=== PATIENT | female | born 1940 | race Caucasian/White ===

== ENCOUNTER 2020-10-11 12:22 | Inpatient (IN) | payer OTHER ==
[~2020-10-11] VITALS: Ht 160 cm; Wt 68.5 kg
[2020-10-11] MEDS ORDERED: ZOFRAN4 MG (13:07)
[2020-10-11] MEDS ORDERED: TIMOPTIC 0.5 % O5 ML EACH EYE (13:07)
[2020-10-11] MEDS ORDERED: SYNTHROID88 MCG PO (13:07)
[2020-10-11] MEDS ORDERED: VOLTAREN100 GM TOPICAL (13:07)
[2020-10-11 13:18] VITALS: BP 145/88; Ht 160 cm; Wt 68.5 kg
[2020-10-11 13:42] LABS: BASOPHILS 0.5 % (0-2); EOSINOPHILS 0 % (0-7); HEMATOCRIT 44.8 % (36.0-48.0); LYMPHOCYTES 20.5 % (15-50); MCH 29.5 pg (26.0-34.0); MCHC 33.5 g/dL (31.0-37.0); MCV 88.1 fL (80.0-100.0); MEAN PLATELET VOLUME 8.3 fL (7.4-10.4); MONOCYTES 18.4 % (2-11); NEUTROPHILS 60.6 % (40-80); PLATELET COUNT 149 10x3/uL (130-400); RBC 5.09 10x6/uL (4.00-5.40); RDW 13.4 % (11.5-14.5)
[2020-10-11 13:52] LABS: CALC OSMOLALITY 274 mosm/kg (275-300); CALCIUM 8.9 mg/dL (8.5-10.1); CARBON DIOXIDE 30.6 mmol/L (21.0-32.0); CHLORIDE - SERUM 99 mmol/L (98-107); CREATININE - SERUM 0.8 mg/dL (0.6-1.3); GLUCOSE 89 mg/dL (74-106); POTASSIUM - SERUM 3.3 mmol/L (3.5-5.1); SODIUM 138 mmol/L (136-145); UREA NITROGEN 13 mg/dL (7-18); eGFR NON AFRICAN AMERICAN 73 mL/min (90-120)
[2020-10-11 14:03] LABS: INR 1.02 (0.85-1.17); PROTIME 12.4 SECONDS (11.6-15.0)
[2020-10-11 14:05] LABS: D-DIMER-QUANTITATIVE 1.21 ug/mLFEU (0.20-0.54)
[2020-10-11 14:12] LABS: ALBUMIN 3.3 g/dL (3.4-5.0); ALKALINE PHOSPHATASE 60 U/L (30-120); ALT (SGPT) 23 U/L (10-68); BILIRUBIN - TOTAL 0.43 mg/dL (0.2-1.3); C-REACTIVE PROTEIN 5.2 mg/dL (0.0-0.9); CREATINE KINASE 78 UL (21-215); FERRITIN 675 ng/mL (3-244); LDH 261 U/L (81-234); PROTEIN - SERUM 6.7 g/dL (6.4-8.2); TROPONIN-I < 0.017 ng/mL (0.000-0.060)
--- NOTE | 2020-10-11 17:05 | NUR ---
PT ARRIVED TO UNIT ACCOMPANIED BY HOSPITAL STAFF. O2 SAT 89% ON ROOM AIR. O2 2LPM VIA NC ADMINISTERD. SETTLED INTO ROOM. DENIES NEEDS AT THIS TIME. CLIR. BED IN LOWEST POSITION. SIDE RAILS X2
[2020-10-11 19:34] VITALS: BP 141/76
--- NOTE | 2020-10-11 21:28 | NUR ---
REPORT RECEIVED. PT A&O, UP IN BED WATCHING TV. NO S/S OF DISTRESS OBSERVED. RR EVEN & UNLABORED ON 2L. IV TO L AC WITH NS @ 125 CC/HR. ASSISTED PT TO RESTROOM. BED LOCKED AND LOWERED, CL IN REACH. ASSESSMENT COMPLETE. WILL CONT POC.
[2020-10-12] VITALS (7 sets, daily range): BP systolic 139–153; BP diastolic 75–97
[2020-10-12 00:47] LABS: BILIRUBIN NEGATIVE (NEGATIVE); KETONE NEGATIVE (NEGATIVE); NITRITE NEGATIVE (NEGATIVE); UROBILINOGEN NORMAL mg/dL (< 2)
[2020-10-12 06:34] LABS: ALBUMIN 3.2 g/dL (3.4-5.0); ALKALINE PHOSPHATASE 62 U/L (30-120); ALT (SGPT) 23 U/L (10-68); CALC OSMOLALITY 280 mosm/kg (275-300); CALCIUM 8.3 mg/dL (8.5-10.1); CARBON DIOXIDE 25.4 mmol/L (21.0-32.0); CHLORIDE - SERUM 104 mmol/L (98-107); CREATININE - SERUM 0.7 mg/dL (0.6-1.3); GLUCOSE 120 mg/dL (74-106); HEMATOCRIT 44.1 % (36.0-48.0); HEMOGLOBIN 14.9 g/dL (12-16); MCH 29.8 pg (26.0-34.0); MCHC 33.7 g/dL (31.0-37.0); MCV 88.4 fL (80.0-100.0); PLATELET COUNT 141 10x3/uL (130-400); POTASSIUM - SERUM 4.1 mmol/L (3.5-5.1); PROTEIN - SERUM 6.4 g/dL (6.4-8.2); RBC 4.99 10x6/uL (4.00-5.40); RDW 13.3 % (11.5-14.5); SODIUM 141 mmol/L (136-145); UREA NITROGEN 10 mg/dL (7-18); eGFR NON AFRICAN AMERICAN 85 mL/min (90-120)
[2020-10-12 06:35] LABS: WBC 2.9 10x3/uL (4.8-10.8)
[2020-10-12 07:43] LABS: LYMPHOCYTES 12 % (15-50); MONOCYTES 2 % (2-11); NEUTROPHILS 84 % (40-80); PLATELET ESTIMATE NORMAL
--- NOTE | 2020-10-12 20:00 | NUR ---
REPORT RECEIVED. PT A&O, UP IN BED WATCHING TV. NO S/S OF DISTRESS OBSERVED. RR EVEN & UNLABORED ON 2L. BED LOCKED AND LOWERED, CL IN REACH. ASSESSMENT COMPLETE. WILL CONT POC.
[2020-10-13 04:29] VITALS: BP 151/83
[2020-10-13 06:40] LABS: BASOPHILS 0.4 % (0-2); EOSINOPHILS 0.3 % (0-7); HEMATOCRIT 40.8 % (36.0-48.0); HEMOGLOBIN 13.8 g/dL (12-16); LYMPHOCYTES 17.6 % (15-50); MCH 29.5 pg (26.0-34.0); MCHC 33.8 g/dL (31.0-37.0); MCV 87.4 fL (80.0-100.0); MEAN PLATELET VOLUME 8.5 fL (7.4-10.4); MONOCYTES 21.5 % (2-11); NEUTROPHILS 60.2 % (40-80); RBC 4.67 10x6/uL (4.00-5.40); RDW 13.1 % (11.5-14.5)
[2020-10-13 06:43] LABS: PLATELET COUNT 172 10x3/uL (130-400); WBC 4.7 10x3/uL (4.8-10.8)
[2020-10-13 06:55] LABS: ALKALINE PHOSPHATASE 59 U/L (30-120); ALT (SGPT) 23 U/L (10-68); BILIRUBIN - TOTAL 0.48 mg/dL (0.2-1.3); CALCIUM 8.2 mg/dL (8.5-10.1); CARBON DIOXIDE 27.2 mmol/L (21.0-32.0); CHLORIDE - SERUM 106 mmol/L (98-107); GLUCOSE 99 mg/dL (74-106); POTASSIUM - SERUM 3.5 mmol/L (3.5-5.1); PROTEIN - SERUM 5.8 g/dL (6.4-8.2); SODIUM 144 mmol/L (136-145)
[2020-10-13 06:56] LABS: CALC OSMOLALITY 284 mosm/kg (275-300); CREATININE - SERUM 0.4 mg/dL (0.6-1.3); UREA NITROGEN 7 mg/dL (7-18); eGFR NON AFRICAN AMERICAN > 90 mL/min (90-120)
--- NOTE | 2020-10-13 07:14 | NUR ---
PT LYING IN BED WITH EYES CLOSED. RAISES TO VERBAL STIMULI. RESP EVEN AND UNLABORED. [address] AAO X4[address] DENIES NEEDS AT THIS TIME. CLIR. BED IN LOWEST POSITON. SIDE RAIS X2
[2020-10-13 07:54] VITALS: BP 140/86
[2020-10-13 10:58] VITALS: BP 134/74
[2020-10-13] MEDS ORDERED: STROMECTOL 3 MG3 MG PO (12:41)
[2020-10-13] MEDS ORDERED: DECADRON4 MG PO (12:41)
[2020-10-13] MEDS ORDERED: SINGULAIR10 MG PO (12:41)
[2020-10-13] MEDS ORDERED: VITAMIN C PO (12:41)
[2020-10-13] MEDS ORDERED: VENTOLIN HFA [SP8 GM INH (12:41)
[2020-10-13] MEDS ORDERED: TESSALON PERLE100 MG PO (12:41)
[2020-10-13] MEDS ORDERED: VITAMIN D325 MC1 PO (12:41)
[2020-10-13] MEDS ORDERED: MELATONIN 3 MG1 TAB PO (12:41)
[2020-10-13] MEDS ORDERED: DULERA 200 MCG8.8 GM INH (12:41)
[2020-10-13] MEDS ORDERED: MUCINEX600 MG PO (12:41)
--- NOTE | 2020-10-13 12:42 | NUR ---
PT AND FAMILY VERY UPSET ABOUT CONDITION OF ROOM. ROOM CLEANED BY HOUSEKEEPING. LINENS AND GOWN CHANGED. PT STATES HER ROOM HAS BEEN DIRTY FOR 10 DAYS. PT ARRIVED TO THIS UNIT FRIDAY TO CLEAN ROOM.
--- NOTE | 2020-10-13 13:09 | MORECARE ---
CASE MANAGEMENT DISCHARGE SUMMARY PATIENT: PANFILO BRITT UNIT: [id number] ADM DATE: 10/11/20 AGE: 80 : 39 SEX: F ROOM/BED: D.210 AUTHOR: JENARO,DOC PHYSICIAN: REFERRING PHYSICIAN: LIZZY LANIER MD DATE OF SERVICE: 10/13/20 Case Management Discharge Planning Summary COMMENTS ENTERED DATE: 10/13/20 12:56 CT COMMENT TYPE: Discharge Planning REVIEWER: Pilar Cordero CM HAS MET WITH PATIENT AND FAMILY. ROBERT IS BRINGING OXYGEN TO HER ROOM AND THEN DELIVER TO HOUSE. PATIENT TO DC TO HOME AFTER OXYGEN TANK IS DELIVERED TO HER ROOM. DCP REVIEW SUMMARY ANTICIPATED D/C DATE: EXPECTED LOS : CASE STATUS: DCP Initiated INITIAL REVIEW: 10/11/2020 INITIAL REVIEWER: Pilar Cordero FINAL DISCHARGE DISPOSITION: : FINAL REVIEWER: FINAL REVIEW DATE: DCP Focus Questions & Answers QUESTION: ANSWER : PATIENT: PANFILO BRITT ENCOUNTER: [id number] MEDICAL RECORD#: [id number] ADMISSION DATE: 10/11/2020 DISCHARGE DATE: ATTENDING MD: LIZZY MARIE : AGE: 80 MARITAL STATUS: U DC PLAN ID: [id number] FACILITY: PRINTED ON: 10/13/20 13:09 CT All edits/amendments must be made on the electronic document DICTATION DATE: 10/13/20 130 DUMPER CENTRAL CONCRETE MIXING PLANT: KAIA 10/13/20 1309 RPT#: [id number] DC DATE: STATUS: ADM IN [address] [place] [address] END OF REPORT
--- NOTE | 2020-10-13 13:23 | NUR ---
RX'S CALLED TO [facility], SPOKE WITH HARRISON, PHARMACIST.
--- NOTE | 2020-10-13 14:02 | NUR ---
PT DC HOME WITH FAMILY MEMBER. IV DC. IV CATH TIP INTACT. DRESSING APPLIED. DC INSTRUCTIONS GIVEN VERBALLY AND WRITTEN. PT VERBALIZED UNDERSTANDING.
--- NOTE | 2020-10-13 14:28 | MORECARE ---
CASE MANAGEMENT DISCHARGE SUMMARY PATIENT: PANFILO BRITT UNIT: [id number] ADM DATE: 10/11/20 AGE: 80 : 39 SEX: F ROOM/BED: D.210 AUTHOR: JENARO,DOC PHYSICIAN: REFERRING PHYSICIAN: LIZZY LANIER MD DATE OF SERVICE: 10/13/20 Case Management Discharge Planning Summary COMMENTS ENTERED DATE: 10/13/20 12:56 CT COMMENT TYPE: Discharge Planning REVIEWER: Pilar Cordero CM HAS MET WITH PATIENT AND FAMILY. ROBERT IS BRINGING OXYGEN TO HER ROOM AND THEN DELIVER TO HOUSE. PATIENT TO DC TO HOME AFTER OXYGEN TANK IS DELIVERED TO HER ROOM. DCP REVIEW SUMMARY ANTICIPATED D/C DATE: 10/13/2020 EXPECTED LOS : 2 CASE STATUS: DCP Initiated INITIAL REVIEW: 10/11/2020 INITIAL REVIEWER: Pilar Cordero FINAL DISCHARGE DISPOSITION: : FINAL REVIEWER: FINAL REVIEW DATE: DCP Focus Questions & Answers QUESTION: ANSWER : PATIENT: PANFILO BRITT ENCOUNTER: [id number] MEDICAL RECORD#: [id number] ADMISSION DATE: 10/11/2020 DISCHARGE DATE: 10/13/2020 ATTENDING MD: LIZZY MARIE : AGE: 80 MARITAL STATUS: U DC PLAN ID: [id number] FACILITY: [facility] PRINTED ON: 10/13/20 14:27 CT All edits/amendments must be made on the electronic document DICTATION DATE: 10/13/201426 LUMPIA WRAPPER MAKER: DM 10/13/201426 RPT#: [id number] DC DATE:10/13/20 STATUS: DIS IN [facility] [address] [place] [address] END OF REPORT
--- NOTE | 2020-10-13 14:42 | MORECARE ---
CASE MANAGEMENT DISCHARGE SUMMARY PATIENT: PANFILO MALDONADO UNIT: [id number] ADM DATE: 10/11/20 AGE: 80 : 39 SEX: F ROOM/BED: D.210 AUTHOR: JENARO,DOC PHYSICIAN: REFERRING PHYSICIAN: LIZZY LANIER MD DATE OF SERVICE: 10/13/20 Case Management Discharge Planning Summary COMMENTS ENTERED DATE: 10/13/20 12:56 CT COMMENT TYPE: Discharge Planning REVIEWER: Pilar Cordero CM HAS MET WITH PATIENT AND FAMILY. ROBERT IS BRINGING OXYGEN TO HER ROOM AND THEN DELIVER TO HOUSE. PATIENT TO DC TO HOME AFTER OXYGEN TANK IS DELIVERED TO HER ROOM. DCP REVIEW SUMMARY ANTICIPATED D/C DATE: 10/13/2020 EXPECTED LOS : 2 CASE STATUS: DCP Initiated INITIAL REVIEW: 10/11/2020 INITIAL REVIEWER: Pilar Cordero FINAL DISCHARGE DISPOSITION: : FINAL REVIEWER: FINAL REVIEW DATE: DCP Focus Questions & Answers DCP Screen QUESTION: ANSWER High Risk Factors: : None Walking limitation: Patient stated self rated walking limitation present? : No Age: : 79 + Prior living environment: : Lives with others Disability ranking: : Grade 1: No significant disability DCP Evaluation QUESTION: ANSWER Patient and/or caregiver agree upon recommended discharge plan? : Yes Patient's current cognitive status: : *Oriented to person, place, situation, time and present Patient's ability to cope with chronic illness : d. No chronic illness Patient gives permission to discuss discharge plans with: (name, relationship and number) : Abran Maldonado (Spouse) [phone] Family / Caregiver's ability to cope with chronic illness: : a. Adequate (ability to meet patient's medical needs, ensures patient attends medical appts.) Does the patient have the ability to pay for or attain post discharge needs / services? : Yes Functional screen assessment: : Basic needs can adequately be met by self Family / Caregiver's ability to cope with chronic illness: : a. Adequate (ability to meet patient's medical needs, ensures patient attends medical appts.) Physical Status: : Independent with ADL's Equipment needed for post hospitalization: : Home Oxygen with Nasal Cannula Is there a likelihood that the patient will require additional services to return to the preadmission environment? : Yes Living Arrangements: : Home with Spouse/Significant Other Results of this evaluation have been discussed with: : Patient Patient with capacity for self-care or can be cared for in same environment as prior to hospitalization? : Yes Baseline cognitive status: : *Oriented to person, place, situation, time and present Physical environment modification needed / anticipated for discharge: : N/A Medication Management: : Patient states can afford medications Medication Management: : Patient states they do have transportation to meat pickler medications Medication Management: : Patient states can read and understand medication labels Planned post hospital services available for patient? : Yes Pharmacy name(s): : [facility] [place] [employer] [place] Planned post hospital services covered by insurance plan? : Yes Does Patient have transportation to get home and to follow-up medical appointments when discharged from the hospital? : Yes Would patient like to participate in any Care Coordination programs (if applicable): : Not applicable Does the patient have electricity at home? : Yes Does the patient have running water in their house? : Yes Equipment in use: : None Mental health screen: : No mental health history Psychosocial status: : Independent adult (65+) Abuse/Neglect: : None Resources / Services in place: : None DCP Re-evaluation QUESTION: ANSWER Would patient like to participate in any Care Coordination programs (if applicable): : Not applicable PATIENT: PANFILO MALDONADO ENCOUNTER: [id number] MEDICAL RECORD#: [id number] ADMISSION DATE: 10/11/2020 DISCHARGE DATE: 10/13/2020 ATTENDING MD: LIZZY MARIE : AGE: 80 MARITAL STATUS: U DC PLAN ID: [id number] FACILITY: [facility] PRINTED ON: 10/13/20 14:41 CT All edits/amendments must be made on the electronic document DICTATION DATE: 10/13/201440 SUSTAINABILITY PURCHASING AGENT: KAIA 10/13/201440 RPT#: [id number] DC DATE:10/13/20 STATUS: DIS IN [facility] [address] [place] [address] END OF REPORT
--- NOTE | 2020-10-13 14:54 | MORECARE ---
CASE MANAGEMENT DISCHARGE SUMMARY PATIENT: PANFILO MALDONADO UNIT: [id number] ADM DATE: 10/11/20 AGE: 80 : 39 SEX: F ROOM/BED: D.2107 AUTHOR: JENARO,DOC PHYSICIAN: REFERRING PHYSICIAN: LIZZY LANIER MD DATE OF SERVICE: 10/13/20 Case Management Discharge Planning Summary COMMENTS ENTERED DATE: 10/13/20 14:33 CT COMMENT TYPE: Discharge Planning REVIEWER: Juany Lin CM met with patient to complete discharge planning assessment and offer availability of needed services. Patient states that she lives independently at home with her spouse Abran Maldonado ([phone]) prior to admission. Spouse and grand daughter present in room at time of DCP and verified that home environment is safe and has electricity and running water. Patient denies need for transportation and states that they have funds for services and medications if needed. Patient uses [facility] for pharmacy needs. CM offered and discussed home health, rehab services, and need for any medical equipment. Patient has been discharged with Oxygen need. Pt states that she has no preference for DME. Pt chose [facility] for DME, information faxed for home delivery. Transportation home will be provided by spouse and grand daughter. Patient verbalized understanding of signed forms SCOTT form signed for additional service, placed on chart. ENTERED DATE: 10/13/20 12:56 CT COMMENT TYPE: Discharge Planning REVIEWER: Pilar Cordero CM HAS MET WITH PATIENT AND FAMILY. ROBERT IS BRINGING OXYGEN TO HER ROOM AND THEN DELIVER TO HOUSE. PATIENT TO DC TO HOME AFTER OXYGEN TANK IS DELIVERED TO HER ROOM. DCP REVIEW SUMMARY ANTICIPATED D/C DATE: 10/13/2020 EXPECTED LOS : 2 CASE STATUS: DCP Initiated INITIAL REVIEW: 10/11/2020 INITIAL REVIEWER: Pilar Cordero FINAL DISCHARGE DISPOSITION: : FINAL REVIEWER: FINAL REVIEW DATE: DCP Focus Questions & Answers DCP Screen QUESTION: ANSWER High Risk Factors: : None Walking limitation: Patient stated self rated walking limitation present? : No Age: : 79 + Prior living environment: : Lives with others Disability ranking: : Grade 1: No significant disability DCP Evaluation QUESTION: ANSWER Patient and/or caregiver agree upon recommended discharge plan? : Yes Patient's current cognitive status: : *Oriented to person, place, situation, time and present Patient's ability to cope with chronic illness : d. No chronic illness Patient gives permission to discuss discharge plans with: (name, relationship and number) : Abran Maldonado (Spouse) [phone] Family / Caregiver's ability to cope with chronic illness: : a. Adequate (ability to meet patient's medical needs, ensures patient attends medical appts.) Does the patient have the ability to pay for or attain post discharge needs / services? : Yes Functional screen assessment: : Basic needs can adequately be met by self Family / Caregiver's ability to cope with chronic illness: : a. Adequate (ability to meet patient's medical needs, ensures patient attends medical appts.) Physical Status: : Independent with ADL's Equipment needed for post hospitalization: : Home Oxygen with Nasal Cannula Is there a likelihood that the patient will require additional services to return to the preadmission environment? : Yes Living Arrangements: : Home with Spouse/Significant Other Results of this evaluation have been discussed with: : Patient Patient with capacity for self-care or can be cared for in same environment as prior to hospitalization? : Yes Baseline cognitive status: : *Oriented to person, place, situation, time and present Physical environment modification needed / anticipated for discharge: : N/A Medication Management: : Patient states can afford medications Medication Management: : Patient states they do have transportation to slat pickler medications Medication Management: : Patient states can read and understand medication labels Planned post hospital services available for patient? : Yes Pharmacy name(s): : [facility] [place] Planned post hospital services covered by insurance plan? : Yes Does Patient have transportation to get home and to follow-up medical appointments when discharged from the hospital? : Yes Would patient like to participate in any Care Coordination programs (if applicable): : Not applicable Does the patient have electricity at home? : Yes Does the patient have running water in their house? : Yes Equipment in use: : None Mental health screen: : No mental health history Psychosocial status: : Independent adult (65+) Abuse/Neglect: : None Resources / Services in place: : None DCP Re-evaluation QUESTION: ANSWER Would patient like to participate in any Care Coordination programs (if applicable): : Not applicable PATIENT: BALWINDER, PANFILO ENCOUNTER: [id number] MEDICAL RECORD#: [id number] ADMISSION DATE: 10/11/2020 DISCHARGE DATE: 10/13/2020 ATTENDING MD: LIZZY MARIE : AGE: 80 MARITAL STATUS: U DC PLAN ID: [id number] FACILITY: [facility] PRINTED ON: 10/13/20 14:54 CT All edits/amendments must be made on the electronic document DICTATION DATE: 10/13/201453 AIRCRAFT TECHNICIAN: KAIA 10/13/201453 RPT#: [id number] DC DATE:10/13/20 STATUS: DIS IN [facility] [address] [place] [address] END OF REPORT
--- NOTE | 2020-10-15 18:41 | MORECARE ---
CASE MANAGEMENT DISCHARGE SUMMARY PATIENT: PANFILO MALDONADO UNIT: [id number] ADM DATE: 10/11/20 AGE: 80 : 39 SEX: F ROOM/BED: D.2104 AUTHOR: JENARO,DOC PHYSICIAN: REFERRING PHYSICIAN: LIZZY LANIER MD DATE OF SERVICE: 10/15/20 Case Management Discharge Planning Summary COMMENTS ENTERED DATE: 10/13/20 14:33 CT COMMENT TYPE: Discharge Planning REVIEWER: Juany Lin CM met with patient to complete discharge planning assessment and offer availability of needed services. Patient states that she lives independently at home with her spouse Abran Maldonado ([phone]) prior to admission. Spouse and grand daughter present in room at time of DCP and verified that home environment is safe and has electricity and running water. Patient denies need for transportation and states that they have funds for services and medications if needed. Patient uses [facility] for pharmacy needs. CM offered and discussed home health, rehab services, and need for any medical equipment. Patient has been discharged with Oxygen need. Pt states that she has no preference for DME. Pt chose [facility] for DME, information faxed for home delivery. Transportation home will be provided by spouse and grand daughter. Patient verbalized understanding of signed forms SCOTT form signed for additional service, placed on chart. ENTERED DATE: 10/13/20 12:56 CT COMMENT TYPE: Discharge Planning REVIEWER: Pilar Cordero CM HAS MET WITH PATIENT AND FAMILY. ROBERT IS BRINGING OXYGEN TO HER ROOM AND THEN DELIVER TO HOUSE. PATIENT TO DC TO HOME AFTER OXYGEN TANK IS DELIVERED TO HER ROOM. DCP REVIEW SUMMARY ANTICIPATED D/C DATE: 10/13/2020 EXPECTED LOS : 2 CASE STATUS: DCP Complete INITIAL REVIEW: 10/11/2020 INITIAL REVIEWER: Pilar Cordero FINAL DISCHARGE DISPOSITION: 01 : Home or Self Care (Routine Discharge) FINAL REVIEWER: Henrietta Herrera FINAL REVIEW DATE: DCP Focus Questions & Answers DCP Screen QUESTION: ANSWER High Risk Factors: : None Walking limitation: Patient stated self rated walking limitation present? : No Age: : 79 + Prior living environment: : Lives with others Disability ranking: : Grade 1: No significant disability DCP Evaluation QUESTION: ANSWER Patient and/or caregiver agree upon recommended discharge plan? : Yes Family / Caregiver's ability to cope with chronic illness: : a. Adequate (ability to meet patient's medical needs, ensures patient attends medical appts.) Patient's current cognitive status: : *Oriented to person, place, situation, time and present Patient's ability to cope with chronic illness : d. No chronic illness Patient gives permission to discuss discharge plans with: (name, relationship and number) : Abran Maldonado (Spouse) [phone] Does the patient have the ability to pay for or attain post discharge needs / services? : Yes Functional screen assessment: : Basic needs can adequately be met by self Family / Caregiver's ability to cope with chronic illness: : a. Adequate (ability to meet patient's medical needs, ensures patient attends medical appts.) Physical Status: : Independent with ADL's Equipment needed for post hospitalization: : Home Oxygen with Nasal Cannula Is there a likelihood that the patient will require additional services to return to the preadmission environment? : Yes Living Arrangements: : Home with Spouse/Significant Other Results of this evaluation have been discussed with: : Patient Patient with capacity for self-care or can be cared for in same environment as prior to hospitalization? : Yes Baseline cognitive status: : *Oriented to person, place, situation, time and present Physical environment modification needed / anticipated for discharge: : N/A Medication Management: : Patient states can read and understand medication labels Medication Management: : Patient states they do have transportation to bulk picker medications Medication Management: : Patient states can afford medications Planned post hospital services available for patient? : Yes Pharmacy name(s): : [facility] Planned post hospital services covered by insurance plan? : Yes Does Patient have transportation to get home and to follow-up medical appointments when discharged from the hospital? : Yes Would patient like to participate in any Care Coordination programs (if applicable): : Not applicable Does the patient have electricity at home? : Yes Does the patient have running water in their house? : Yes Equipment in use: : None Mental health screen: : No mental health history Psychosocial status: : Independent adult (65+) Abuse/Neglect: : None Resources / Services in place: : None DCP Re-evaluation QUESTION: ANSWER Would patient like to participate in any Care Coordination programs (if applicable): : Not applicable PATIENT: PANFILO MALDONADO ENCOUNTER: [id number] MEDICAL RECORD#: [id number] ADMISSION DATE: 10/11/2020 DISCHARGE DATE: 10/13/2020 ATTENDING MD: LIZZY MARIE : AGE: 80 MARITAL STATUS: U DC PLAN ID: [id number] FACILITY: [facility] PRINTED ON: 10/15/20 18:41 CT All edits/amendments must be made on the electronic document DICTATION DATE: 10/15/201840 SHIP CLEANER: KAIA 10/15/201840 RPT#: [id number] DC DATE:10/13/20 STATUS: DIS IN [facility] [address] [place] [address] END OF REPORT
== END 2020-10-13 14:00 | disposition home or self-care (01) | DRG 177 ==
LOC: D.ER 12:22 → EDSTATUS 12:37 → D.ICU 13:02 → D.M2 13:02
PROVIDERS: Family Medicine; Family Medicine Adult Medicine; Internal Medicine Pulmonary Disease; ADMIT Family Medicine; ATTEND Family Medicine
DX: U07.1 COVID-19 (principal); J96.01 Acute respiratory failure with hypoxia; J12.82 Pneumonia due to coronavirus disease 2019; E87.6 Hypokalemia; H40.9 Unspecified glaucoma; E03.9 Hypothyroidism, unspecified